=== PATIENT | male | born 1935 | race Caucasian/White ===

== ENCOUNTER 2018-06-04 10:28 | Outpatient (CLI) | payer MEDICARE, BC | END 2018-06-04 10:29 | disposition home or self-care (01) | LOC: BICRAD 10:28 | PROVIDERS: ATTEND Internal Medicine | DX: R06.00 Dyspnea, unspecified (principal) | CPT/HCPCS: 36415; 71046; 80053; 83880; 85027 ==

== ENCOUNTER 2018-08-21 12:24 | Outpatient (CLI) | payer MEDICARE, BC ==
[2018-08-21 12:45] LABS: #Lymphocytes 1.3 thou/uL (1.20-3.40); #Monocytes 0.3 thou/uL (0.11-0.59); #Neutrophils 3.5 thou/uL (1.40-6.50); %Basophils 0.8 % (0.0-1.0); %Eosinophils 0.5 % (0.0-10.0); %Lymphocytes 24.9 % (21.0-51.0); %Monocytes 5.7 % (0.0-10.0); %Neutrophils 68.1 % (42.0-75.0); Hemoglobin 14.6 g/dL (14.0-18.0); Mean Corpuscular HGB CONC 32.6 g/dL (32.0-36.0); Mean Corpuscular Hemoglobin 30.3 pg (27.0-31.0); Mean Corpuscular Volume 92.8 fL (78.0-98.0); Mean Platelet Volume 8.2 fL (7.4-10.4); Platelet Count 166 thou/uL (130-400); RBC Distribution Width 13.1 % (11.5-14.5); Red Blood Cell (RBC) Count 4.83 mill/uL (4.70-6.10); White Blood Cell (WBC) Count 5.2 thou/uL (4.8-10.8)
[2018-08-21 13:13] LABS: Anion Gap 14 mmol/L (10-20); BUN (Urea Nitrogen) 16 mg/dL (8.4-25.7); Calc. Creatinine Clearance 0 mL/min (70-130); Calcium 9.3 mg/dL (7.8-10.44); Carbon Dioxide 24 mmol/L (23-31); Chloride 107 mmol/L (98-107); Estimated GFR-MDRD 63; Glucose 97 mg/dL (83-110); Potassium 4.5 mmol/L (3.5-5.1); Sodium 140 mmol/L (136-145)
== END 2018-08-21 12:25 | disposition home or self-care (01) ==
LOC: LABBT 12:24
PROVIDERS: ATTEND Urology
DX: Z01.812 Encounter for preprocedural laboratory examination (principal); N40.1 Benign prostatic hyperplasia with lower urinary tract symptoms; R35.1 Nocturia; R39.11 Hesitancy of micturition; R31.29 Other microscopic hematuria
CPT/HCPCS: 80048; 85025

== ENCOUNTER 2018-08-28 06:17 | Day surgery (SDC) | payer MEDICARE, BC ==
[2018-08-21 12:37] VITALS: BMI 26.6
[2018-08-28] MEDS ORDERED: Fentanyl 100 MCG/2 ML VIAL ONE (06:49)
[2018-08-28] MEDS ORDERED: Levofloxacin 500 mg/D5W 100 ml Premix Bag ONE (06:53)
[2018-08-28] MEDS ORDERED: B & O 30 MG SUPP ONE (07:03)
[2018-08-28] MEDS ORDERED: Furosemide 20 MG/2 ML VIAL ONE (07:03)
[2018-08-28 07:22] LABS: INR-International Normal Ratio 1.2; PTT 38.1 SEC (22.9-36.1); Prothrombin Time 14.8 SEC (12.0-14.7)
[2018-08-28] MEDS ORDERED: Dexamethasone 20 MG/5 ML VIAL ONE (16:22)
[2018-08-28] MEDS ORDERED: PROPOFOL 200 MG/20 ML VIAL ONE (16:22)
[2018-08-28] MEDS ORDERED: PHENYLEPHRINE-NS 100 MCG/ML 10 ML SYRINGE ONE (16:22)
[2018-08-28] MEDS ORDERED: ePHEDrine/0.9% NaCl/PF SYRINGE 50 mg/10 ml ONE (16:22)
[2018-08-28] MEDS ORDERED: Lidocaine 1% PF 5 ML VIAL ONE (16:22)
[2018-08-28] MEDS ORDERED: Ondansetron HCl/PF 4 MG/2 ML Vial ONE (16:22)
--- NOTE | 2018-08-28 23:04 | OP ---
DATE OF PROCEDURE: 08/28/2018 PREOPERATIVE DIAGNOSIS: Benign prostatic hypertrophy. POSTOPERATIVE DIAGNOSIS: Benign prostatic hypertrophy. PROCEDURE: GreenLight laser vaporization of the prostate with enucleation of the middle lobe. SURGEON: Maryse Villalobos MD ANESTHESIA: General LMA. FINDINGS: Adequate opening of the prostatic urethra by enucleating the middle lobe and significant inferior prostatic urethra oozing at the end of the case, but otherwise not a significant amount of blood loss. BLOOD LOSS: Still minimal. COMPLICATIONS: Oozing from the distal prostatic urethra DRAINS: Drain remaining was a 22-[place] 3-way. SPECIMENS: Prostate chips. INDICATION: The patient is an 83-year-old male, who is followed in the office for BPH and on maximum meds already with low flow, who opted for definitive therapy. DESCRIPTION OF PROCEDURE: The patient was brought into the room by Anesthesia, laid on the table in supine position. After receiving general anesthetic, we placed the patient in lithotomy position. His perineum was prepped and draped in sterile fashion. Using a 22.5-[place] cystoscope and 30-degree lens, urethra was traversed. The middle lobe was obstructing and so power level of 80 was used at the bladder neck to make incisions at 5 and 7 in order to better enucleate the middle lobe, and then the middle lobe was enucleated to make it smaller pieces that would still be able to be irrigated out. Power level of 80 was used at the bladder neck and near the veru. Power level of 180 was used to the mid gland. Patient had minimal to no bleeding until nearing the inferior portion of the prostatic urethra near the veru, where at this point, even though I was using the power level of 80, there was significant oozing. Attempts at trying to localize this were not successful, so I took the scope out , blew up a balloon, and held it for 5 minutes of pressure. This cleared, but then when it was relieved and the scope was put back in, there was still some oozing noted. Again, attention was paid all at the portion just above the sphincter, so care was taken only to use power level of 80, but there was no definitive bleeding, just oozing from this area on each lateral side. So, at this point, I removed the scope after ensuring all the chips were out. A good stream had already been noted. Then a 22-[place] 3-way was placed with the balloon blown up and monitored. The urine cleared immediately when the balloon was on tension, so at this point I kept a very slow rate of CBI going in with the balloon on tension and leave it there on the postoperative area in the hopes of being able to take this off and the CBI, and depending on how his urine looked in the postoperative period, he would be able to go home. The catheter was secured on tension with instructions for when to remove it and CBI was left at a slow drip. A total of 200 and something joules was used. I am going to try to find that number and add that to the dictation. The patient was then awakened and transferred to PACU in stable condition. SAJAN
== END 2018-08-28 12:15 | disposition home or self-care (01) ==
LOC: SDC 06:17
PROVIDERS: ATTEND Urology
PROC: 0V508ZZ Destruction of Prostate, Via Natural or Artificial Opening Endoscopic (ICD-10-PCS; principal; 2018-08-28)
DX: N40.1 Benign prostatic hyperplasia with lower urinary tract symptoms (principal); R35.0 Frequency of micturition; R35.1 Nocturia; R39.11 Hesitancy of micturition; R39.12 Poor urinary stream; I10 Essential (primary) hypertension; E07.9 Disorder of thyroid, unspecified; I25.10 Atherosclerotic heart disease of native coronary artery without angina pectoris; I25.2 Old myocardial infarction; Z86.73 Personal history of transient ischemic attack (TIA), and cerebral infarction without residual deficits; Z79.01 Long term (current) use of anticoagulants; Z79.82 Long term (current) use of aspirin; Z79.899 Other long term (current) drug therapy; Z95.1 Presence of aortocoronary bypass graft
CPT/HCPCS: 85610; 85730; 88305; J1100; J1940; J1956; J2001; J2405; J2704; J3010

== ENCOUNTER 2019-07-15 16:25 | Inpatient (IN) | payer MEDICARE, BC ==
--- NOTE | 2019-07-15 17:15 | CT ---
CT BRAIN WITHOUT CONTRAST: History: TIA. FINDINGS: There is ventricular deformities due to cortical atrophy. No evidence of acute infarct, hemorrhage, m idline shift or abnormal extraaxial fluid collections are seen. 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 The basilar cisterns are patent. The ventricular size is appropriat e. The bony calvarium is intact. The visualized paranasal sinuses and mastoid air cells are well aera mary. IMPRESSION: No CT evidence of acute intracranial process. POS: [facility]
[2019-07-15 17:18] LABS: #Eosinphils 0.1 thou/uL (0.0-0.7); #Lymphocytes 1.9 thou/uL (1.20-3.40); #Monocytes 0.6 thou/uL (0.11-0.59); #Neutrophils 5.4 thou/uL (1.40-6.50); %Basophils 0.5 % (0.0-1.0); %Eosinophils 1.2 % (0.0-10.0); %Lymphocytes 23.7 % (21.0-51.0); %Monocytes 7.4 % (0.0-10.0); %Neutrophils 67.2 % (42.0-75.0); Mean Corpuscular HGB CONC 34.3 g/dL (32.0-36.0); Mean Corpuscular Hemoglobin 31.1 pg (27.0-31.0); Mean Corpuscular Volume 90.7 fL (78.0-98.0); Mean Platelet Volume 8.3 fL (7.4-10.4); Platelet Count 157 thou/uL (130-400); RBC Distribution Width 13.2 % (11.5-14.5); Red Blood Cell (RBC) Count 4.81 mill/uL (4.70-6.10); White Blood Cell (WBC) Count 8.1 thou/uL (4.8-10.8)
--- NOTE | 2019-07-15 17:21 | RAD ---
PORTABLE CHEST ONE VIEW: Date: 07-15-19 Time: 5:00 p.m. History: Tingling to left arm and left foot. TIA. FINDINGS: Comparison made with exam of 07-03-19. There are changes of median sternotomy. There are changes of previous valve replacement surgery. The heart size is normal. The aorta is tortuous. A left sided pacemaker device has been placed in the int erim. The lungs are well expanded without lobar consolidation, pneumothoraces, mohan pulmonary edema or pleural effusions. IMPRESSION: No acute process. POS: [facility]
[2019-07-15 17:34] LABS: Bacteria/HPF None Seen HPF (None Seen); Bilirubin Negative (Negative); Blood, Urine 1+ (Negative); Clarity Clear (Clear); Glucose, Urine (Dipstick) Normal (Negative); Leukocyte Negative Leu/uL (Negative); Nitrite Negative (Negative); Protein, Urine (Dipstick) Negative (Neg-Trace); RBC/HPF 0-3 HPF (0-3); Squamous Epithelial None Seen HPF (0-3); Urobilinogen Normal mg/dL (Less than 2); WBC/HPF 0-3 HPF (0-3)
[2019-07-15 17:42] LABS: ALT (SGPT) 12 U/L (8-55); AST (SGOT) 20 U/L (5-34); Albumin 4.5 g/dL (3.4-4.8); Alkaline Phosphatase 83 U/L (40-150); Anion Gap 16 mmol/L (10-20); BUN (Urea Nitrogen) 25 mg/dL (8.4-25.7); Calc. Creatinine Clearance 0 mL/min (70-130); Calcium 10.1 mg/dL (7.8-10.44); Carbon Dioxide 23 mmol/L (23-31); Chloride 105 mmol/L (98-107); Estimated GFR-MDRD 61; Globulin 2.8 g/dL (2.4-3.5); Glucose 94 mg/dL (83-110); Potassium 4.3 mmol/L (3.5-5.1); Protein, Total 7.3 g/dL (5.8-8.1); Sodium 140 mmol/L (136-145)
[2019-07-15 18:30] LABS: INR-International Normal Ratio 1.3; PTT 40.5 SEC (22.9-36.1); Prothrombin Time 15.8 SEC (12.0-14.7)
[2019-07-15] MEDS ORDERED: Aspirin Chewable 81 MG TAB ONE (19:01)
[2019-07-15 21:15] LABS: Troponin I 0.757 ng/mL (< 0.028)
[2019-07-15 23:43] LABS: Critical Call Chem Troponin I RESULT DECREASING; Troponin I 0.664 ng/mL (< 0.028)
[2019-07-16] MEDS ORDERED: Ondansetron PF 4 MG/2 ML Vial IVP PRN (00:52)
[2019-07-16] MEDS ORDERED: Acetaminophen 325 MG TAB PO PRN (00:52)
[2019-07-16] MEDS ORDERED: Acetaminophen 650 MG Suppository PR PRN (00:52)
[2019-07-16] MEDS ORDERED: Ondansetron ODT 4 MG TAB PO PRN (00:52)
[2019-07-16 02:53] LABS: #Eosinphils 0.1 thou/uL (0.0-0.7); #Lymphocytes 1.5 thou/uL (1.20-3.40); #Monocytes 0.6 thou/uL (0.11-0.59); %Basophils 0.6 % (0.0-1.0); %Eosinophils 1.6 % (0.0-10.0); %Lymphocytes 24.2 % (21.0-51.0); %Monocytes 9.9 % (0.0-10.0); %Neutrophils 63.8 % (42.0-75.0); Hemoglobin 13.4 g/dL (14.0-18.0); Mean Corpuscular Hemoglobin 30.9 pg (27.0-31.0); Mean Corpuscular Volume 90.7 fL (78.0-98.0); Mean Platelet Volume 8.3 fL (7.4-10.4); Platelet Count 153 thou/uL (130-400); RBC Distribution Width 13.2 % (11.5-14.5); Red Blood Cell (RBC) Count 4.33 mill/uL (4.70-6.10); White Blood Cell (WBC) Count 6.2 thou/uL (4.8-10.8)
[2019-07-16 03:17] LABS: Anion Gap 13 mmol/L (10-20); BUN (Urea Nitrogen) 25 mg/dL (8.4-25.7); Calc. Creatinine Clearance 0 mL/min (70-130); Calcium 9.3 mg/dL (7.8-10.44); Carbon Dioxide 22 mmol/L (23-31); Cardiac Risk 3.8 (Less than 4.5); Chloride 109 mmol/L (98-107); Cholesterol 120 mg/dl (< 200 Desired); Estimated GFR-MDRD 69; Glucose 151 mg/dL (83-110); HDL Cholesterol 32 mg/dL (>60 Neg Risk); LDL Cholesterol, Calculated 71 mg/dL; Potassium 4.1 mmol/L (3.5-5.1); Sodium 140 mmol/L (136-145); Triglycerides 87 mg/dL (Less than 150)
--- NOTE | 2019-07-16 05:18 | HP ---
This is NOVA Bella dictating a report for Anju Loving MD. PRIMARY CARE PHYSICIAN: Dr. Gómez. CHIEF COMPLAINT: Left arm and leg tingling/weakness. HISTORY OF PRESENT ILLNESS: Mr. Bañuelos is an 84-year-old gentleman with a history of TIA and previous DE, who recently underwent a permanent pacemaker/defibrillator placement on 07/12/2019. This was done due to symptomatic bradycardia. The patient states he had a heart rate as low as 36. He presents today due to a 15-minute episode of left arm/leg tingling and weakness. He states he was sitting down talking to his neighbor when it suddenly started with a flushed sensation followed by the tingling and weakness in the left arm and leg. He denies having any numbness. No facial numbness or weakness. No slurred speech. He did not experience a headache. He did feel slightly lightheaded, but denies any dizziness. The patient states this episode felt exactly as he experienced with previous TIAs. He denies having any chest pain or shortness of breath. Denies having any recent fevers, chills, or sweats. No nausea or vomiting. No abdominal pain. His gait has been normal. The patient states once again that it lasted approximately 15 minutes and started between 2:30 and 3:00 pm. The patient states his symptoms have not recurred since, and he feels he is back to his normal baseline. Of note, the patient was previously on Coumadin which was discontinued in preparation for the procedure and he resumed Coumadin Monday evening following the procedure. In the emergency department, the patient underwent an EKG that showed a paced rhythm and a heart rate of 70. He had a CT of the head done showing no CT evidence of acute intracranial process. The patient had a recent echo done on 07/04/2019, showing a restrictive filling pattern with an EF of 30% to 35%. There was akinesis of inferior wall and septum. Left atrium moderately to severely dilated. Mild enlarged right atrium size. Moderate mitral regurgitation, mild mitral annular calcification, mild aortic regurgitation, mild tricuspid regurgitation, and mild pulmonic regurgitation present. Normal functioning bioprosthetic valve in aortic position. He had laboratory studies that were notable for a troponin of 0.624 and were also notable for a subtherapeutic INR of 1.3. He was given 324 mg of aspirin in the emergency department. A chest x-ray was obtained and showed no evidence of acute intrathoracic abnormalities. REVIEW OF SYSTEMS: All other review of systems are negative apart from those mentioned above in HPI. PAST MEDICAL HISTORY: 1. Coronary artery disease. 2. Hyperlipidemia. 3. Hypertension. 4. Previous DE. 5. Permanent pacemaker/defibrillator placement on 07/12/2019. PAST SURGICAL HISTORY: 1. CABG x3 in the 90s. 2. Defibrillator/permanent pacemaker on 07/12/2019. SOCIAL HISTORY: The patient lives alone. Denies any alcohol consumption or illicit drug use. No tobacco use. ALLERGIES: NO KNOWN DRUG ALLERGIES. CURRENT MEDICATIONS: 1. Isosorbide mononitrate. 2. Aspirin. 3. Atorvastatin. 4. Hydralazine. 5. Lasix. 6. Lisinopril. 7. Metoprolol tartrate. 8. Plavix. 9. Ranitidine. 10. Warfarin. PHYSICAL EXAMINATION: GENERAL: The patient appears well developed, well nourished, is in no acute distress. VITAL SIGNS: Temperature 98.4, pulse 76, blood pressure 119/74, respirations 20, O2 saturation 99% on room air. HEENT: Normocephalic and atraumatic. Pupils are equal, round, reactive to light. Sclerae without icterus. Oropharynx is clear. NECK: Supple. LUNGS: Clear to auscultation bilaterally without wheezes, rales, or rhonchi. CARDIAC: S1 and S2. ABDOMEN: Soft, nontender, nondistended. Normoactive bowel sounds present. EXTREMITIES: No lower leg swelling or edema. NEUROLOGIC: Alert and oriented x3. Speech is normal. Facial movements normal and power 5/5 in all limbs. IMAGING STUDIES: As mentioned above in HPI. IMPRESSION AND PLAN: gentleman who is presenting with complaints of left arm and leg tingling/weakness lasting 15 minutes, referred for management of the followin. Transient ischemic attack, rule out. The patient has a history of transient ischemic attacks, presented with similar symptoms. CT of the brain unremarkable. We will proceed with transient ischemic attack/stroke protocol. We will obtain a fasting lipid panel. Given recent defibrillator placement, we will not order MRI of the brain. We will obtain carotid Dopplers. Day Team to decide further investigations. Echo done recently. Consultation placed to Neurology. 2. Boo-VC-[id number] myocardial infarction. Elevated troponin. Second troponin was further increased at 0.664 compared to 0.624 initially. We will add on BNP. The patient remained asymptomatic without any chest pain. When presenting with previous myocardial infractions, he did have pain. We will place consultation to Cardiology as per Dr. Loving's recommendations. We will continue to trend troponins. He will require continuous telemetry monitoring. We will obtain repeat EKG to assess for any dynamic changes. 3. Hypertension. Resume home medications once verified. Monitor blood pressure. 4. Hypercholesterolemia. We will resume home aspirin and statin. 5. Subtherapeutic INR. The patient restarted Coumadin on Monday and INR currently low at 1.3. Order placed to pharmacy for continued dosing of Coumadin. 6. Hypothyroidism. We will resume home medication once verified. 7. Gastrointestinal prophylaxis. 8. Deep venous thrombosis prophylaxis with mechanical SCDs. 9. Code status, full. Surrogate decision maker is his , Bhakti Bañuelos. The patient's case was discussed with Dr. Loving, who agrees with plan of care as described above. Job ID: [id number]
[2019-07-16] MEDS ORDERED: Aspirin 81 mg Enteric Coated Tablet PO SCH ×2 (09:00→21:00)
[2019-07-16] MEDS ORDERED: Famotidine/PF 20 mg/2ml Vial SLOW IVP SCH (09:00)
[2019-07-16] MEDS ORDERED: Sacubitril 49 MG/Valsartan 51 MG TABLET PO SCH (09:00)
[2019-07-16] MEDS ORDERED: Levothyroxine Sodium 50 MCG TAB PO SCH ×2 (09:30→21:00)
--- NOTE | 2019-07-16 09:41 | ULT ---
CAROTID ARTERIAL DOPPLER ULTRASOUND: 07/16/2019 HISTORY: Transient ischemic attack. Assess for carotid artery stenosis. COMPARISON: None. TECHNIQUE: Multiplanar corral-scale sonographic imaging of the arterial structures of the neck obtained with color -flow and spectral analysis. FINDINGS: Normal antegrade wave-forms documented within the carotid and vertebral system bilaterally. There is scattered atherosclerotic plaque within the proximal ICA and ECA, as well as the distal CCA bilatera lly. VESSEL PSV (CM PER SECOND) RIGHT CCA 54 RIGHT ICA 77 RIGHT ECA 103 LEFT CCA 67 LEFT ICA 92 LEFT ECA 92 RIGHT ICA/CCA RATIO 1.4 LEFT ICA/CCA RATIO: 1.4 IMPRESSION: No hemodynamically significant stenosis on the basis of sonographic velocity criteria. POS: OFF
[2019-07-16] MEDS ORDERED: Famotidine/PF 20 mg/2ml Vial ONE (10:07)
[2019-07-16] MEDS: Carvedilol 3.125 MG TAB PO SCH ×2 (10:53→18:03)
[2019-07-16 15:38] VITALS: BMI 25.5
[2019-07-16 15:51] VITALS: BP 143/74; TEMP 97.7
[2019-07-16] MEDS ORDERED: Warfarin Sodium 3 MG TAB PO SCH (17:00)
[2019-07-16] MEDS ORDERED: Enoxaparin Sodium 120 MG/0.8 ML SYRINGE SC SCH (17:00)
[2019-07-16] MEDS ORDERED: Enoxaparin Sodium 80 MG/0.8 ML SYRINGE SC SCH (17:00)
--- NOTE | 2019-07-16 18:19 | CON ---
DATE OF CONSULTATION: 07/16/2019 CONSULTING PHYSICIAN: Hospitalist Service. IMPRESSION: Transient ischemic attack due to subtherapeutic Coumadin. PLAN: Lovenox as a bridge until his INR is subtherapeutic. HISTORY OF PRESENT ILLNESS: Mr. Bañuelos is an 84-year-old gentleman with a past history of coronary artery disease, TIA, prior stroke with right-sided weakness, hyperlipidemia, hypertension, who presented with transient left-sided weakness and numbness lasting about 10 minutes. He had been off his Coumadin. He had a pacemaker placed on last Monday. He went back onto his maintenance dose, and when he came in, his INR was 1.3. He has had previous echocardiogram, which showed an ejection fraction between 30% and 35%. His CT scan of the brain showed an old right cerebellar infarct, but no acute hemorrhage. His carotid ultrasound does not show any significant stenosis. PAST MEDICAL HISTORY: As listed above. ALLERGIES: PER CHART. SOCIAL HISTORY: No tobacco or alcohol. FAMILY HISTORY: Unremarkable. REVIEW OF SYSTEMS: Ten-system review of systems is otherwise negative. PHYSICAL EXAMINATION: GENERAL: He is a healthy-appearing gentleman, who appears younger than his stated age. VITAL SIGNS: Have been stable. He is afebrile. He has a paced rhythm. HEENT: Pupils are equal. Conjunctivae are clear. Oropharynx is clear. Cranium normocephalic and atraumatic. NECK: Supple. No lymphadenopathy. EXTREMITIES: No cyanosis or edema. NEUROLOGIC: He is alert and appropriate. His speech is fluent and clear. Cranial nerves 2 through 12 are intact. Motor exam showed equal wet end tester strength. There was no fix or drift. No tremor. Dysmetria is present. Sensations intact to touch. He can walk independently. SUMMARY: Elderly gentleman with a TIA secondary to subtherapeutic levels of Coumadin. I agree with the management. Job ID: [id number]
--- NOTE | 2019-07-16 20:48 | DIS ---
DATE OF ADMISSION: 07/15/2019 DATE OF DISCHARGE: 07/16/2019 DISCHARGE DIAGNOSES: 1. Transient ischemic attack, suspected, resolved. 2. Subtherapeutic INR with chronic anticoagulation with Coumadin. 3. Elevated troponin I secondary to permanent pacemaker/defibrillator placement. 4. Coronary artery disease, chronic and stable. 5. Hypertension, stable. 6. Chronic anticoagulation with Coumadin. CONSULTATIONS: None. PERTINENT LABORATORY AND X-RAY FINDINGS: Troponin I ranged between 0.624 to 0.757. Total cholesterol 120, triglycerides 87, HDL 32, LDL 71. TSH 2.48. BNP 1557. CBC showed a hemoglobin ranging between 13.4 to 15. PT 15.8, INR 1.3. CT of the brain without contrast dated 07/15/2019, showed no acute intracranial process. Portable chest x-ray dated 07/15/2019, showed no acute cardiopulmonary process. 2D transthoracic echocardiogram dated 07/04/2019, showed ejection fraction of 30% to 35%. Septum akinetic. Moderate to severe left atrial enlargement. Moderate mitral regurgitation. Carotid Doppler study dated 07/16/2019, showed no hemodynamically significant stenosis. HOSPITAL COURSE: The patient was observed on the Stroke Unit after initially presenting with left arm and left lower leg paresthesias. The patient with recent pacemaker/defibrillator placement on 07/12/2019, presenting with the above symptoms. The patient underwent general stroke protocol with neuroimaging with CT modality showing no evidence of acute process. The patient was noted on cardiac biomarker sampling with elevated troponin I in the context of recent pacemaker/defibrillator placement. The patient continued on aspirin 81 mg daily without evidence of chest pain or acute coronary syndrome. The patient underwent pacemaker interrogation showing normal functioning device. The patient was also noted with subtherapeutic INR in the context of chronic Coumadin therapy and bioprosthetic aortic valve. The patient received subcutaneous Lovenox with recommendations for Lovenox bridging until INR becomes therapeutic after discharge. Overall, the patient did remain clinically stable throughout the hospital course, tolerating regular oral intake with stable vital signs. I have examined the patient at the time of discharge and discussed followup instructions. The patient verbalizes understanding and in agreement, ready for discharge on 07/16/2019. DISCHARGE MEDICATIONS: 1. Lipitor 40 mg p.o. at bedtime. 2. Coreg 3.125 mg p.o. b.i.d. 3. Lasix 40 mg p.o. daily. 4. Synthroid 50 mcg p.o. at bedtime. 5. Protonix 40 mg p.o. at bedtime. 6. Entresto 49/51 mg p.o. b.i.d. 7. Lovenox 75 mg subcutaneously q.12 hours starting on 07/17/2019, at 1800. 8. Coumadin 2 mg p.o. at bedtime. FOLLOWUP: The patient may follow up with his back primary care provider, Dr. Dot Gómez within 7 days of discharge. CONDITION ON DISCHARGE: Stable. ACTIVITY: Ad-eric. DIET: Coumadin prudent and heart healthy. SPECIAL INSTRUCTIONS: Repeat PT/INR at the Coumadin Clinic on 07/18/2019, with a goal INR of 2.5 to 3. CODE STATUS: Full. DISPOSITION: Home on 07/16/2019. Job ID: [id number]
[2019-07-16] MEDS ORDERED: Atorvastatin Calcium 40 MG TAB PO SCH (21:00)
--- NOTE | 2019-07-17 00:07 | CON ---
DATE OF CONSULTATION: HISTORY OF PRESENT ILLNESS: Mr. Reza Bañuelos is a pleasant 84-year-old white male, who is a long-time patient of Dr. Pisano. He initially had CABG in 1993 with DIEGO to the LAD, saphenous vein graft to the obtuse marginal and to the right coronary artery. He also underwent placement of a stent in the graft to the obtuse marginal in 2008. In April 2015, a catheterization was found to have subtotal occlusion of the left main in the proximal LAD. The right coronary artery was totally occluded. DIEGO to the LAD was patent. The saphenous vein graft to the obtuse marginal had a 25% in-stent restenosis. The vein graft to right coronary artery was patent. However, the distal right coronary artery had a 75% to 90% stenosis. Ejection fraction was 25% to 30% and he was found to have moderate to severe aortic stenosis. He underwent aortic valve replacement with #21 magna valve and replacement of the ascending aorta, and CABG x1 to the right posterior descending in May 2015. He required a balloon pump and Levophed postoperatively. He was recently hospitalized in June 2019 with congestive heart failure. He had left bundle-branch block and bradycardia with heart rates in the 30s at times. He underwent placement of a biventricular ICD on July 12, 2019. He restarted his Coumadin that day. Atrial lead was not placed due to him being in chronic atrial fibrillation. He then presented yesterday with a 10 to 15 minute episode of left arm and left leg paresthesias and weakness. He did not try to walk, but did notice when he tried to lift his left leg, that it was weak. After 10 to 15 minutes, this resolved. He did not have any slurred speech. He came to the emergency room and was found to have an INR of 1.3 and has been started on therapeutic Lovenox. At the present time, he has no complaints. PAST MEDICAL HISTORY: Systolic congestive heart failure, coronary artery disease, bioprosthetic aortic valve, hypertension, hypercholesterolemia. PAST SURGICAL HISTORY: Initial bypass surgery in 1993. In May 2015, he underwent placement of a bioprosthetic aortic valve, proximal aorta replacement and bypass to the right posterior descending. He also had a biventricular ICD placed on July 12, 2019. MEDICATIONS: 1. Atorvastatin 40 at bedtime. 2. Carvedilol 3.125 b.i.d. 3. Furosemide 40 daily. 4. Warfarin 2 mg at bedtime. 5. Entresto 49/51 b.i.d. 6. Protonix 40 at bedtime. 7. Synthroid 50 mcg q.p.m. ALLERGIES: NONE. SOCIAL HISTORY: He does not smoke or drink. REVIEW OF SYSTEMS: Unremarkable. PHYSICAL EXAMINATION: VITAL SIGNS: Blood pressure of 143/74, pulse of 74, paced on the monitor. HEENT: PERRL. NECK: Supple. CHEST: Clear. CARDIAC: S1 and S2 are normal without any S3 or S4. There is a 2-3/6 systolic ejection murmur along the left sternal border. Carotid upstroke is normal without bruits. ABDOMEN: Normal bowel sounds without tenderness. EXTREMITIES: Revealed no clubbing, cyanosis, or edema. Neurological: Reveals good strength bilaterally. SKIN: Warm and dry. LABORATORY DATA: EKG reveals a biventricular pacing. Sodium 140, potassium 4.1, chloride 109, carbon dioxide 22, BUN 25, creatinine 1.03. Troponin I 0.757. BNP 1557.1 (improved from June 2019 when BNP was 2723.9). Cholesterol 120, triglycerides 87, HDL 32, LDL 71. INR 1.3. Hemoglobin 13.4, hematocrit 39.3, white count 6200, platelets 153,000. IMPRESSION: 1. Transient ischemic attack secondary to inadequate anticoagulation in someone with chronic atrial fibrillation. 2. Chronic atrial fibrillation. 3. Recent placement of biventricular ICD. 4. Left bundle-branch block. 5. Xur-PX-[id number] myocardial infarction, type 2. 6. Hypertension. 7. Hypercholesterolemia. 8. Hypothyroidism. PLAN: The patient will continue to remain on therapeutic Lovenox until his INR is adequately increased to greater than 2.0. This certainly may be performed as an outpatient with close followup in the Coumadin clinic. Job ID: [id number]
[2019-07-17] MEDS ORDERED: Levothyroxine Sodium 50 MCG TAB PO SCH (06:00)
--- NOTE | 2019-07-18 05:45 | PQF ---
APARNA PATEL CHARLES DO [id number] EUGENIO LOPEZ [id number] CLINICAL DOCUMENTATION CLARIFICATION FORM: POST DISCHARGE Addendum to original discharge summary date: ____ Late entry note date: __ DATE: 07/18/19 ATTN: Dr. Ilan Vincent Please exercise your independent, professional judgment in responding to the clarification form. Clinical indicators are provided on the bottom of this form for your review Can you please further specify if Non-ST elevation myocardial infarction is ruled in or ruled out? Non-ST elevation myocardial infarction [ ] Ruled in diagnosis [ ] Continue to treat [ ] Resolved [ x ] Ruled out diagnosis [ ] Cannot rule out diagnosis [ ] Other diagnosis please specify [ ] Unable to determine In addition, please specify: Present on Admission (POA): [ ] Yes [ x ] No [ ] Unable to determine For continuity of documentation, please document condition throughout progress notes and discharge summary. Thank You. CLINICAL INDICATORS H and P 07/15 pg.3- " Non-ST elevation myocardial infarction. Elevated troponin. Second troponin was further increased at 0.664 compaired to 0.624 initially." DS 9/ pg1- Elevated troponin I secondary to permanent pacemaker / defibrillator placement DS 07/16 pg1- Troponin ranged between 0.624 to 0.757 DS 9/ pg1- The patient continued on aspirin 81 mg daily without evidence of chest pain or acute coronary syndrome RISK FACTORS Previous MN- H and P pg.1 CABG x3 in the 90s-H and P pg.1 HTN- H and P pg.1 CAD-H and P pg.1 Hyperlipidemia-H and P pg.1 Systolic CHF- Consult Dr. Gomes pg.1 TREATMENTS Aspirin 81 mg- JAN 19 Cardiology Consult- Dr. Gomes (This form is maintained as a part of the permanent medical record) 2014 [employer]. All Rights Reserved [email or web address] [not provided] [email or web address]
== END 2019-07-16 19:45 | disposition home or self-care (01) | DRG 69 ==
LOC: ERS 16:25 → ERHOLD 19:24 → OBSVTOIN 22:20 → 2SE 07-16 14:57
PROVIDERS: ADMIT Hospitalist; ATTEND Hospitalist
PROC: 4B02XTZ Measurement of Cardiac Defibrillator, External Approach (ICD-10-PCS; principal; 2019-07-16)
DX: G45.9 Transient cerebral ischemic attack, unspecified (principal); I69.351 Hemiplegia and hemiparesis following cerebral infarction affecting right dominant side; I50.22 Chronic systolic (congestive) heart failure; I25.10 Atherosclerotic heart disease of native coronary artery without angina pectoris; E78.5 Hyperlipidemia, unspecified; E78.00 Pure hypercholesterolemia, unspecified; E03.9 Hypothyroidism, unspecified; I11.0 Hypertensive heart disease with heart failure; I48.2 Chronic atrial fibrillation; I25.2 Old myocardial infarction; Z79.01 Long term (current) use of anticoagulants; Z95.810 Presence of automatic (implantable) cardiac defibrillator; Z79.82 Long term (current) use of aspirin; Z79.02 Long term (current) use of antithrombotics/antiplatelets; Z79.899 Other long term (current) drug therapy; Z95.2 Presence of prosthetic heart valve
CPT/HCPCS: 36415; 70450; 71045; 80048; 80053; 80061; 81003; 81015; 82553; 83880; 84443; 84484; 85025; 85610; 85730; 93005; 93880; 94760; J1650; S0028

== ENCOUNTER 2022-05-09 13:49 | Outpatient (CLI) | payer MEDICARE, BC | END 2022-05-09 13:50 | disposition home or self-care (01) | LOC: LABBT 13:49 | PROVIDERS: ATTEND Internal Medicine | DX: Z12.11 Encounter for screening for malignant neoplasm of colon (principal); K31.89 Other diseases of stomach and duodenum; Z95.2 Presence of prosthetic heart valve; Z20.822 Contact with and (suspected) exposure to COVID-19 | CPT/HCPCS: U0003; U0005 ==

== ENCOUNTER 2022-05-12 06:53 | Day surgery (SDC) | payer MEDICARE, BC ==
[2022-05-11 10:07] VITALS: BMI 26.3
[2022-05-12] MEDS ORDERED: fentaNYL Citrate/PF 100 MCG/2 ML SYRINGE ONE (07:54)
[2022-05-12] MEDS ORDERED: PHENYLEPHRINE-NS 100 MCG/ML 10 ML SYRINGE ONE (08:09)
[2022-05-12] MEDS ORDERED: PROPOFOL 200 MG/20 ML VIAL ONE (08:09)
== END 2022-05-12 10:20 | disposition home or self-care (01) ==
LOC: SDC 06:53
PROVIDERS: ATTEND Internal Medicine
PROC: 0DBK8ZZ Excision of Ascending Colon, Via Natural or Artificial Opening Endoscopic (ICD-10-PCS; principal; 2022-05-12)
PROC: 0DBL8ZZ Excision of Transverse Colon, Via Natural or Artificial Opening Endoscopic (ICD-10-PCS; 2022-05-12)
PROC: 0DBN8ZZ Excision of Sigmoid Colon, Via Natural or Artificial Opening Endoscopic (ICD-10-PCS; 2022-05-12)
PROC: 0DBH8ZZ Excision of Cecum, Via Natural or Artificial Opening Endoscopic (ICD-10-PCS; 2022-05-12)
PROC: 0DB58ZX Excision of Esophagus, Via Natural or Artificial Opening Endoscopic, Diagnostic (ICD-10-PCS; 2022-05-12)
DX: Z12.11 Encounter for screening for malignant neoplasm of colon (principal); D12.2 Benign neoplasm of ascending colon; D12.3 Benign neoplasm of transverse colon; K63.5 Polyp of colon; K57.30 Diverticulosis of large intestine without perforation or abscess without bleeding; K64.8 Other hemorrhoids; K29.50 Unspecified chronic gastritis without bleeding; K31.A0 Gastric intestinal metaplasia, unspecified; K44.9 Diaphragmatic hernia without obstruction or gangrene; K21.00 Gastro-esophageal reflux disease with esophagitis, without bleeding; K31.89 Other diseases of stomach and duodenum; I48.91 Unspecified atrial fibrillation; I11.0 Hypertensive heart disease with heart failure; I50.9 Heart failure, unspecified; E78.00 Pure hypercholesterolemia, unspecified; Z79.01 Long term (current) use of anticoagulants; Z79.890 Hormone replacement therapy; Z79.899 Other long term (current) drug therapy; Z95.1 Presence of aortocoronary bypass graft; Z95.5 Presence of coronary angioplasty implant and graft
CPT/HCPCS: 88305; 88342; J2704

== ENCOUNTER 2023-12-15 12:47 | Outpatient (CLI) | payer MEDICARE, BC ==
[2023-12-15 13:39] LABS: #Basophils 0.1 10x3/uL (0.0-0.2); #Eosinphils 0.1 10x3/uL (0.0-0.5); #Monocytes 0.6 10x3/uL (0.0-1.1); #Neutrophils 5.2 10x3/uL (1.5-8.4); %Basophils 0.8 % (0.0-2.0); %Eosinophils 0.8 % (0.0-6.0); %Lymphocytes 22.5 % (18.0-47.0); %Monocytes 8.2 % (0.0-10.0); %Neutrophils 67.4 % (40.0-75.0); Hematocrit 42.2 % (38.8-50.0); Hemoglobin 13.5 g/dL (13.5-17.5); Mean Corpuscular Hemoglobin 27.7 pg (27.0-33.0); Mean Corpuscular Volume 86.5 fl (81.2-95.1); Mean Platelet Volume 10.7 fl (7.4-10.4); Platelet Count 225 10x3/uL (150-450); RBC Distribution Width 14.9 % (11.5-14.5); Red Blood Cell (RBC) Count 4.88 10x6/uL (4.32-5.72); White Blood Cell (WBC) Count 7.7 10x3/uL (3.5-10.5)
[2023-12-15 13:56] LABS: ALT (SGPT) 20 U/L (8-55); AST (SGOT) 20 U/L (5-34); Albumin 4.3 g/dL (3.4-4.8); Alkaline Phosphatase 75 U/L (40-110); Anion Gap 16 mmol/L (10-20); BUN (Urea Nitrogen) 35 mg/dL (8.4-25.7); Bilirubin, Total 1.4 mg/dL (0.2-1.2); Calc. Creatinine Clearance 0 mL/min (70-130); Calcium 8.9 mg/dL (7.8-10.44); Carbon Dioxide 22 mmol/L (23-31); Chloride 109 mmol/L (98-107); Estimated GFR 50; Globulin 2.4 g/dL (2.4-3.5); Glucose 92 mg/dL (83-110); Potassium 3.9 mmol/L (3.5-5.1); Protein, Total 6.7 g/dL (5.8-8.1); Sodium 143 mmol/L (136-145)
[2023-12-15 13:59] LABS: INR-International Normal Ratio 3.8; PTT 37.6 sec (22.0-33.0); Prothrombin Time 39.6 sec (9.5-12.1)
== END 2023-12-15 12:48 | disposition home or self-care (01) ==
LOC: LABBT 12:47
PROVIDERS: ATTEND Internal Medicine Cardiovascular Disease
DX: Z01.818 Encounter for other preprocedural examination (principal); I25.110 Atherosclerotic heart disease of native coronary artery with unstable angina pectoris; Z95.1 Presence of aortocoronary bypass graft
CPT/HCPCS: 80053; 85025; 85610; 85730

== ENCOUNTER 2023-12-19 11:38 | Day surgery (SDC) | payer MEDICARE, BC ==
[2023-12-15 13:27] VITALS: BMI 25.8
[2023-12-19 13:35] LABS: INR-International Normal Ratio 2.1; PTT 27.3 sec (22.9-36.1); Prothrombin Time 23.4 sec (12.0-14.7)
== END 2023-12-19 14:20 | disposition home or self-care (01) ==
LOC: SDC 11:38
PROVIDERS: ATTEND Internal Medicine Cardiovascular Disease
DX: I48.19 Other persistent atrial fibrillation (principal); I25.10 Atherosclerotic heart disease of native coronary artery without angina pectoris; Z53.09 Procedure and treatment not carried out because of other contraindication; R79.1 Abnormal coagulation profile; I11.0 Hypertensive heart disease with heart failure; I50.42 Chronic combined systolic (congestive) and diastolic (congestive) heart failure; I45.10 Unspecified right bundle-branch block; I34.0 Nonrheumatic mitral (valve) insufficiency; E78.2 Mixed hyperlipidemia; E03.9 Hypothyroidism, unspecified; Z86.73 Personal history of transient ischemic attack (TIA), and cerebral infarction without residual deficits; Z79.01 Long term (current) use of anticoagulants; Z95.1 Presence of aortocoronary bypass graft; Z95.2 Presence of prosthetic heart valve; Z95.810 Presence of automatic (implantable) cardiac defibrillator; Z79.890 Hormone replacement therapy; Z79.899 Other long term (current) drug therapy
CPT/HCPCS: 85610; 85730

== ENCOUNTER 2023-12-22 10:17 | Day surgery (SDC) | payer MEDICARE, BC ==
[2023-12-21 11:19] VITALS: BMI 25.5
[2023-12-22] MEDS ORDERED: Iopamidol 370 76% 100 ML VIAL ONE (10:19)
[2023-12-22 11:14] LABS: #Basophils 0.1 thou/uL (0.0-0.2); #Eosinphils 0.1 thou/uL (0.0-0.7); #Monocytes 0.8 thou/uL (0.11-0.59); #Neutrophils 6.4 thou/uL (1.40-6.50); %Basophils 0.8 % (0.0-1.0); %Eosinophils 0.8 % (0.0-10.0); %Lymphocytes 23.7 % (21.0-51.0); %Monocytes 8.6 % (0.0-10.0); %Neutrophils 65.6 % (42.0-75.0); Hematocrit 40.9 % (42.0-52.0); Hemoglobin 12.9 g/dL (14.0-18.0); Mean Corpuscular HGB CONC 31.5 g/dL (32.0-36.0); Mean Corpuscular Hemoglobin 27.4 pg (27.0-31.0); Mean Corpuscular Volume 86.8 fl (78.0-98.0); Mean Platelet Volume 11.4 fL (7.4-10.4); Platelet Count 248 10x3/uL (130-400); RBC Distribution Width 15.1 % (11.5-14.5); Red Blood Cell (RBC) Count 4.71 mill/uL (4.70-6.10); White Blood Cell (WBC) Count 9.8 10x3/uL (4.8-10.8)
[2023-12-22 11:28] LABS: INR-International Normal Ratio 1.4; PTT 35.9 sec (22.9-36.1); Prothrombin Time 17.4 sec (12.0-14.7)
[2023-12-22 11:37] LABS: ALT (SGPT) 45 U/L (8-55); AST (SGOT) 33 U/L (5-34); Albumin 4.1 g/dL (3.4-4.8); Alkaline Phosphatase 80 U/L (40-110); Anion Gap 16 mmol/L (10-20); BUN (Urea Nitrogen) 45 mg/dL (8.4-25.7); Bilirubin, Total 1.5 mg/dL (0.2-1.2); Calc. Creatinine Clearance 30 mL/min (70-130); Calcium 9.2 mg/dL (7.8-10.44); Carbon Dioxide 22 mmol/L (23-31); Chloride 109 mmol/L (98-107); Estimated GFR 36; Globulin 2.5 g/dL (2.4-3.5); Glucose 113 mg/dL (83-110); Potassium 3.8 mmol/L (3.5-5.1); Protein, Total 6.6 g/dL (5.8-8.1); Sodium 143 mmol/L (136-145)
[2023-12-22] MEDS ORDERED: Nitroglycerin 50 MG/250 ML BOT 0 ML ONE (12:00)
[2023-12-22] MEDS ORDERED: Heparin 10,000 UNITS/ 10 ML VIAL ONE (12:00)
== END 2023-12-22 17:18 | disposition home or self-care (01) ==
LOC: CCL 10:17
PROVIDERS: ATTEND Internal Medicine Cardiovascular Disease
PROC: 4A023N7 Measurement of Cardiac Sampling and Pressure, Left Heart, Percutaneous Approach (ICD-10-PCS; principal; 2023-12-22)
PROC: B200YZZ Plain Radiography of Single Coronary Artery using Other Contrast (ICD-10-PCS; 2023-12-22)
DX: I25.110 Atherosclerotic heart disease of native coronary artery with unstable angina pectoris (principal); I11.0 Hypertensive heart disease with heart failure; I50.42 Chronic combined systolic (congestive) and diastolic (congestive) heart failure; E78.5 Hyperlipidemia, unspecified; I48.19 Other persistent atrial fibrillation; E78.2 Mixed hyperlipidemia; E03.9 Hypothyroidism, unspecified; Z79.82 Long term (current) use of aspirin; Z86.73 Personal history of transient ischemic attack (TIA), and cerebral infarction without residual deficits; Z79.899 Other long term (current) drug therapy; Z95.1 Presence of aortocoronary bypass graft; Z95.2 Presence of prosthetic heart valve; Z95.810 Presence of automatic (implantable) cardiac defibrillator; Z79.890 Hormone replacement therapy
CPT/HCPCS: 80053; 85025; 85610; 85730; 93459; C1725; C1769; J1644

== ENCOUNTER 2024-01-05 16:03 | Inpatient (IN) | payer MEDICARE, BC ==
[2024-01-05 16:54] LABS: #Monocytes 1.3 thou/uL (0.11-0.59); #Neutrophils 11.4 thou/uL (1.40-6.50); %Basophils 0.1 % (0.0-1.0); %Lymphocytes 6.9 % (21.0-51.0); %Monocytes 9.8 % (0.0-10.0); %Neutrophils 82.8 % (42.0-75.0); Hematocrit 38.5 % (42.0-52.0); Hemoglobin 12.5 g/dL (14.0-18.0); Mean Corpuscular HGB CONC 32.5 g/dL (32.0-36.0); Mean Corpuscular Hemoglobin 26.3 pg (27.0-31.0); Mean Corpuscular Volume 81.1 fl (78.0-98.0); Mean Platelet Volume 11.9 fL (7.4-10.4); Platelet Count 188 10x3/uL (130-400); RBC Distribution Width 15.6 % (11.5-14.5); Red Blood Cell (RBC) Count 4.75 mill/uL (4.70-6.10); White Blood Cell (WBC) Count 13.7 10x3/uL (4.8-10.8)
[2024-01-05 17:16] LABS: PTT 47.2 sec (22.9-36.1)
[2024-01-05 17:17] LABS: Prothrombin Time 54.4 sec (12.0-14.7)
[2024-01-05] MEDS ORDERED: Furosemide 40 MG (4 mL) VIAL ONE (17:19)
[2024-01-05 17:21] LABS: ALT (SGPT) 476 U/L (8-55); AST (SGOT) 364 U/L (5-34); Albumin 3.7 g/dL (3.4-4.8); Alkaline Phosphatase 101 U/L (40-110); Anion Gap 24 mmol/L (10-20); BUN (Urea Nitrogen) 105 mg/dL (8.4-25.7); Bilirubin, Total 3.9 mg/dL (0.2-1.2); Calc. Creatinine Clearance 0 mL/min (70-130); Calcium 9.1 mg/dL (7.8-10.44); Carbon Dioxide 18 mmol/L (23-31); Chloride 96 mmol/L (98-107); Estimated GFR 16; Globulin 2.4 g/dL (2.4-3.5); Glucose 98 mg/dL (83-110); Potassium 3.9 mmol/L (3.5-5.1); Protein, Total 6.1 g/dL (5.8-8.1); Sodium 134 mmol/L (136-145)
[2024-01-05 17:38] LABS: Critical Call Chem Troponin I NUR.DB11 @1738; Troponin I 1.294 ng/mL (< 0.028)
[2024-01-05 18:10] LABS: Critical Call Chem-Lactate ERS.ZC @1809
[2024-01-05] MEDS ORDERED: Aspirin Chewable 81 MG TAB ONE (18:16)
[2024-01-05] MEDS ORDERED: Enoxaparin 80 MG (0.8 mL) SYRINGE ONE (18:16)
[2024-01-05 18:17] LABS: Calcium, Ionized (venous) 1.04 mmol/L (1.16-1.32); Chloride (VBG) 93 mmol/L (98-106); Hematocrit-VBG 38 % (42.0-52.0); Potassium (VBG) 3.79 mmol/L (3.70-5.30); Sodium 133 mmol/L (133-146); pH (venous) 7.359 (7.32-7.43)
[2024-01-05 18:27] LABS: Influenza A by NAA Not Detected (NotDetected); Influenza B by NAA Not Detected (NotDetected); SARS-CoV-2 NAA Rapid Test Not Detected (NotDetected)
[2024-01-05] MEDS ORDERED: Acetaminophen 325 MG TAB PO PRN (18:30)
[2024-01-05] MEDS ORDERED: cefTRIAXone (ROCEPHIN) 2 GM VIAL ONE (18:32)
[2024-01-05] MEDS ORDERED: Sodium Chloride 0.9% 100 ML ONE (18:32)
[2024-01-05] MEDS ORDERED: Azithromycin 500 MG VIAL ONE (18:55)
[2024-01-05] MEDS ORDERED: DOBUTamine 500 mg/250 ml 250 ML ONE (19:29)
[2024-01-05] MEDS ORDERED: DOBUTamine 500 mg/250 ml 250 ML IVPB SCH (19:30)
[2024-01-05] MEDS ORDERED: NOREPINEPHRINE 8 MG/250 ML-D5W 250 ML ONE (19:49)
[2024-01-05 20:25] LABS: #Monocytes 1.2 thou/uL (0.11-0.59); #Neutrophils 13.8 thou/uL (1.40-6.50); %Basophils 0.1 % (0.0-1.0); %Lymphocytes 5.4 % (21.0-51.0); %Monocytes 7.3 % (0.0-10.0); %Neutrophils 86.6 % (42.0-75.0); Hematocrit 34.4 % (42.0-52.0); Hemoglobin 11.5 g/dL (14.0-18.0); Mean Corpuscular HGB CONC 33.4 g/dL (32.0-36.0); Mean Corpuscular Hemoglobin 26.9 pg (27.0-31.0); Mean Corpuscular Volume 80.4 fl (78.0-98.0); Mean Platelet Volume 12.3 fL (7.4-10.4); Platelet Count 169 10x3/uL (130-400); RBC Distribution Width 15.4 % (11.5-14.5); Red Blood Cell (RBC) Count 4.28 mill/uL (4.70-6.10); White Blood Cell (WBC) Count 15.9 10x3/uL (4.8-10.8)
[2024-01-05 20:48] LABS: Critical Call Chem Troponin I NUR.DB11 @2048; Critical Call Chem-Lactate NUR.DB11 @2048; Troponin I 1.842 ng/mL (< 0.028)
[2024-01-05 21:00] LABS: INR-International Normal Ratio 5.4; PTT 48.4 sec (22.9-36.1); Prothrombin Time 49.6 sec (12.0-14.7)
[2024-01-05] MEDS ORDERED: Sacubitril 49 MG/Valsartan 51 MG TABLET PO SCH ×2 (21:00)
[2024-01-05] MEDS ORDERED: Metoprolol Tartrate 25 MG TAB PO SCH ×2 (21:00)
[2024-01-05] MEDS: Metoprolol Tartrate 25 MG TAB PO SCH (21:26)
[2024-01-05] MEDS: Sacubitril 49 MG/Valsartan 51 MG TABLET PO SCH (21:26)
[2024-01-05 21:43] VITALS: BMI 25.8
[2024-01-05 22:33] LABS: Magnesium 3.2 mg/dL (1.6-2.6)
[2024-01-05] MEDS: Atorvastatin Calcium 40 MG TAB PO SCH (23:20)
[2024-01-05 23:46] LABS: Lactic Acid 3.6 mmol/L (0.5-2.2)
[2024-01-05 23:58] LABS: Troponin I 2.161 ng/mL (< 0.028)
[2024-01-06 00:41] LABS: Bacteria/HPF None Seen HPF (None Seen); Bilirubin Negative (Negative); Blood, Urine 3+ (Negative); CAUTI Indications for Culture Alt mental st,lethar; Clarity Turbid (Clear); Glucose, Urine (Dipstick) Normal (Negative); Ketone, Urine Negative (Negative); Leukocyte Negative Leu/uL (Negative); Nitrite Negative (Negative); Protein, Urine (Dipstick) 30 mg/dL (Neg-Trace); RBC/HPF Greater than 50 HPF (0-3); Specific Gravity, Urine 1.011 (1.002-1.036); Squamous Epithelial 0-3 HPF (0-3); Urobilinogen Normal mg/dL (Less than 2); WBC/HPF 21-50 HPF (0-3)
[2024-01-06 00:51] LABS: Urine Culture Reflex Yes Yes
[2024-01-06 01:00] LABS: Creatinine, Urine 63.7 mg/dL (63-166)
[2024-01-06] MEDS: Ondansetron PF 4 MG/2 ML Vial IVP PRN (03:58)
[2024-01-06] MEDS ORDERED: Furosemide 40 MG (4 mL) VIAL SLOW IVP SCH (06:00)
[2024-01-06] MEDS: Levothyroxine Sodium 50 MCG TAB PO SCH (06:14)
[2024-01-06 06:17] LABS: #Neutrophils 14.7 thou/uL (1.40-6.50); %Basophils 0.1 % (0.0-1.0); %Lymphocytes 4.5 % (21.0-51.0); %Monocytes 6.3 % (0.0-10.0); %Neutrophils 88.7 % (42.0-75.0); Hematocrit 32.7 % (42.0-52.0); Hemoglobin 10.8 g/dL (14.0-18.0); Mean Corpuscular Hemoglobin 26.5 pg (27.0-31.0); Mean Corpuscular Volume 80.3 fl (78.0-98.0); Mean Platelet Volume 11.9 fL (7.4-10.4); Platelet Count 185 10x3/uL (130-400); RBC Distribution Width 15.7 % (11.5-14.5); Red Blood Cell (RBC) Count 4.07 mill/uL (4.70-6.10); White Blood Cell (WBC) Count 16.6 10x3/uL (4.8-10.8)
[2024-01-06] MEDS: Furosemide 40 MG (4 mL) VIAL SLOW IVP SCH (06:19)
[2024-01-06 06:34] LABS: INR-International Normal Ratio 3.9; Prothrombin Time 38.8 sec (12.0-14.7)
[2024-01-06 06:39] LABS: ALT (SGPT) 342 U/L (8-55); AST (SGOT) 189 U/L (5-34); Albumin 3.1 g/dL (3.4-4.8); Alkaline Phosphatase 82 U/L (40-110); Anion Gap 16 mmol/L (10-20); BUN (Urea Nitrogen) 111 mg/dL (8.4-25.7); Bilirubin, Total 2.8 mg/dL (0.2-1.2); Calc. Creatinine Clearance 15 mL/min (70-130); Calcium 8.4 mg/dL (7.8-10.44); Carbon Dioxide 25 mmol/L (23-31); Chloride 96 mmol/L (98-107); Estimated GFR 15; Globulin 2.1 g/dL (2.4-3.5); Glucose 155 mg/dL (83-110); Potassium 3.4 mmol/L (3.5-5.1); Protein, Total 5.2 g/dL (5.8-8.1); Sodium 134 mmol/L (136-145)
[2024-01-06] MEDS: Calcium Polycarbophil 625 MG TAB PO SCH (09:13)
[2024-01-06] MEDS: NOREPINEPHRINE 8 MG/250 ML-D5W 250 ML IVPB SCH (09:13)
[2024-01-06] MEDS: Aspirin 81 mg Enteric Coated Tablet PO SCH (09:14)
[2024-01-06] MEDS: Lidocaine 1% (PF) 30 ML VIAL ONE (11:39)
[2024-01-06] MEDS: DOBUTamine 500 mg/250 ml 250 ML IVPB SCH (13:04)
[2024-01-06] MEDS: Albumin 25% 25 GM (100 mL) BOT IVPB SCH (14:50)
[2024-01-06] MEDS: Potassium Chloride 20 MEQ TAB PO SCH (14:50)
[2024-01-06] MEDS ORDERED: Prochlorperazine 10 MG/2 ML VIAL IM PRN (16:41)
[2024-01-06] MEDS: Morphine 2 MG/ML VIAL SLOW IVP SCH (16:57)
[2024-01-06] MEDS: Promethazine HCl 25 MG/ML VIAL IM PRN (16:58)
[2024-01-06 17:08] VITALS: BP 82/59
[2024-01-06] MEDS ORDERED: Morphine 2 MG/ML VIAL SLOW IVP SCH (20:45)
[2024-01-06] MEDS ORDERED: Morphine 2 MG/ML VIAL SLOW IVP PRN (20:50)
[2024-01-07 00:08] VITALS: TEMP 98.2
== END 2024-01-07 03:24 | disposition expired ==
LOC: ERS 16:03 → ERHOLD 18:46 → CCU 22:49
PROVIDERS: ADMIT Internal Medicine; ATTEND Family Medicine
PROC: 5A09357 Assistance with Respiratory Ventilation, Less than 24 Consecutive Hours, Continuous Positive Airway Pressure (ICD-10-PCS; 2024-01-05)
PROC: 3E033XZ Introduction of Vasopressor into Peripheral Vein, Percutaneous Approach (ICD-10-PCS; 2024-01-05)
PROC: 02HV33Z Insertion of Infusion Device into Superior Vena Cava, Percutaneous Approach (ICD-10-PCS; principal; 2024-01-06)
PROC: B548ZZA Ultrasonography of Superior Vena Cava, Guidance (ICD-10-PCS; 2024-01-06)
PROC: 0T9B30Z Drainage of Bladder with Drainage Device, Percutaneous Approach (ICD-10-PCS; 2024-01-06)
PROC: 30233J1 Transfusion of Nonautologous Serum Albumin into Peripheral Vein, Percutaneous Approach (ICD-10-PCS; 2024-01-06)
DX: I13.0 Hypertensive heart and chronic kidney disease with heart failure and stage 1 through stage 4 chronic kidney disease, or unspecified chronic kidney disease (principal); I50.23 Acute on chronic systolic (congestive) heart failure; I21.A1 Myocardial infarction type 2; N17.9 Acute kidney failure, unspecified; D68.9 Coagulation defect, unspecified; E87.20 Acidosis, unspecified; N18.4 Chronic kidney disease, stage 4 (severe); I25.10 Atherosclerotic heart disease of native coronary artery without angina pectoris; I48.91 Unspecified atrial fibrillation; D72.829 Elevated white blood cell count, unspecified; E03.9 Hypothyroidism, unspecified; Z66 Do not resuscitate; D64.9 Anemia, unspecified; N18.9 Chronic kidney disease, unspecified; I25.5 Ischemic cardiomyopathy; E78.5 Hyperlipidemia, unspecified; R57.0 Cardiogenic shock; R33.9 Retention of urine, unspecified; R09.02 Hypoxemia; I25.2 Old myocardial infarction; Z86.73 Personal history of transient ischemic attack (TIA), and cerebral infarction without residual deficits; Z98.890 Other specified postprocedural states; Z95.1 Presence of aortocoronary bypass graft; Z79.01 Long term (current) use of anticoagulants; Z79.82 Long term (current) use of aspirin; Z79.899 Other long term (current) drug therapy; Z95.5 Presence of coronary angioplasty implant and graft; Z11.52 Encounter for screening for COVID-19
CPT/HCPCS: 36415; 71045; 76770; 80048; 80053; 81001; 82570; 82805; 83605; 83735; 83880; 84156; 84484; 85025; 85610; 85730; 87040; 87086; 93005; 93010; 93306; 94660; J0456; J0696; J1250; J1650; J1940; J2001; J2272; J2405; J2550; J3490; P9047